=== PATIENT | female | born 1975 | race Caucasian/White ===

== ENCOUNTER 2016-08-13 16:24 | Emergency (ER) | payer OTHER ==
--- NOTE | 2016-08-13 17:25 | ER Document Report ---
HPI - HPI Patient complains to provider of: TOOTHACHE Onset: Yesterday Onset/Duration: Sudden Quality of pain: Throbbing Severity: Moderate Pain Level: 4 Context: Patient states she has a dental appointment August [address] Lenonn and greg to have tooth removed. Associated Symptoms: None Exacerbated by: Food Relieved by: Denies Similar symptoms previously: Yes Recently seen / treated by doctor: Yes - ROS ROS below otherwise negative: Yes Systems Reviewed and Negative: Yes All other systems reviewed and negative - CONSTITUTIONAL Constitutional: DENIES: Fever - EENT EENT: DENIES: Congestion Notes: Dental pain left lower jaw - NEURO Neurology: DENIES: Headache - CARDIOVASCULAR Cardiovascular: DENIES: Chest pain - RESPIRATORY Respiratory: DENIES: Trouble Breathing - GASTROINTESTINAL Gastrointestinal: DENIES: Abdominal Pain - URINARY Urinary: DENIES: Dysuria - REPRODUCTIVE Reproductive: DENIES: : - MUSCULOSKELETAL Musculoskeletal: DENIES: Extremity pain - DERM Skin Color: Normal Skin Problems: None Past Medical History - General Information source: Patient - Social History Smoking Status: Current Every Day Smoker Cigarette use (# per day): Yes Frequency of alcohol use: None Drug Abuse: None Lives with: Family Family History: Arthritis, CAD, CVA, Hyperlipidemia, Hypertension, Malignancy, Thyroid Disfunction. denies: DM Patient has suicidal ideation: No Patient has homicidal ideation: No Endocrine Medical History: Reports: Hx Hypothyroidism Renal/ Medical History: Denies: Hx Peritoneal Dialysis GI Medical History: Reports: Hx Gastroesophageal Reflux Disease, Hx Colonoscopy Musculoskeltal Medical History: Reports Hx Musculoskeletal Trauma Traumatic Medical History: Reports: Hx Fractures - wrist arm leg Past Surgical History: Reports: Hx Dilation and Curettage, Hx Gynecologic Surgery - hysterectomy correction, D&C, Hx Hysterectomy, Hx Orthopedic Surgery - right hand - Immunizations Immunizations up to date: Yes Hx Diphtheria, Pertussis, Tetanus Vaccination: Yes - 2009 Vertical Provider Document - CONSTITUTIONAL Agree With Documented VS: Yes Exam Limitations: No Limitations General Appearance: WD/WN, No Apparent Distress - INFECTION CONTROL TRAVEL OUTSIDE OF THE [place] IN LAST 30 DAYS: No - HEENT HEENT: Atraumatic, Normal ENT Exam, Normocephalic Mouth Diagram: 1 - Dental decay, mild gum swelling - NECK Neck: Normal Inspection, Supple - RESPIRATORY Respiratory: Breath Sounds Normal, No Respiratory Distress O2 Sat by Pulse Oximetry: 98 - CARDIOVASCULAR Cardiovascular: Regular Rate, Regular Rhythm - MUSCULOSKELETAL/EXTREMETIES Musculoskeletal/Extremeties: MAEW - NEURO Level of Consciousness: Awake, Alert, Appropriate - DERM Integumentary: Warm, Dry Course - Vital Signs Vital signs: Temp Pulse Resp BP Pulse Ox 98.5 F 86 16 129/71 H 98 08/13/16 16:50 08/13/16 16:50 08/13/16 16:50 08/13/16 16:50 08/13/16 16:50 Discharge - Discharge Clinical Impression: Pain, dental Condition: Good Disposition: HOME, SELF-CARE Instructions: Toothache ([facility]), Clindamycin ([facility]), Oral Narcotic Medication ([facility] ) Additional Instructions: Meds as prescribed [id number] Motrin as needed for pain Follow-up with your dentist as scheduled Return as needed Prescriptions: Clindamycin HCl 150 mg PO QID #28 capsule Hydrocodone/Acetaminophen [[place] 5-325 mg Tablet] 1 tab PO PRN PRN #15 tablet PRN Reason: Forms: Return to Work
[2016-08-13 17:41] VITALS: BP 123/77
== END 2016-08-13 17:41 | disposition home or self-care (01) ==
LOC: ER 16:24
DX: K08.89 Other specified disorders of teeth and supporting structures (principal); F17.210 Nicotine dependence, cigarettes, uncomplicated
CPT/HCPCS: 99282